=== PATIENT | female | born 1955 | race Caucasian/White ===

== ENCOUNTER 2022-09-25 15:18 | Emergency (ER) | payer OTHER, SELFPAY ==
[2022-09-25] VITALS (13 sets, daily range): BP systolic 107–142; BP diastolic 76–108; PULSE 105–118; RESP 26; TEMP 36.1; O2SAT 95–98; BMI 35.4
--- NOTE | 2022-09-25 16:10 | ED_ITS ---
HPI - Abdominal Pain General Chief Complaint: Abdominal Pain Stated Complaint: Midcenter, constant abdominal pain Time Seen by Provider: 09/25/22 15:45 History of Present Illness HPI narrative: This 66-year-old female comes in reporting upper epigastric pain that began a few hours ago and is radiating up into her chest. She attributes this to heartburn type symptoms and states that she did take some Gaviscon without any relief. She does not report any nausea, lightheadedness, shortness of breath, or diaphoresis. She does not have any exercise intolerance. This pain came on while not doing anything particularly strenuous. She did vomit once responding to the pain. Related Data Home Medications Medication Instructions Recorded Confirmed albuterol sulfate 90 mcg/actuation 2 inh inhalation Q4H PRN 09/25/22 09/25/22 aerosol inhaler atenolol 50 mg tablet 50 mg PO DAILY 09/25/22 09/25/22 atorvastatin 20 mg tablet 20 mg PO DAILY 09/25/22 09/25/22 clobetasol 0.05 % topical cream 1 applic topical DAILY 09/25/22 09/25/22 diltiazem HCl 180 mg mg PO Q12H 09/25/22 capsule,extended release 24 hr, controlled gabapentin 300 mg capsule 300 mg PO HS 09/25/22 09/25/22 warfarin 3 mg tablet 3 mg PO DAILY 09/25/22 09/25/22 Previous Rx's Medication Instructions Recorded pantoprazole 20 mg tablet,delayed 20 mg PO DAILY #20 tabs 09/25/22 release (Protonix) Allergies Allergy/AdvReac Type Severity Reaction Status Date / Time digoxin Allergy [place] Verified 09/25/22 15:39 [place] morphine Allergy respiratory Verified 09/25/22 15:39 distress Review of Systems Status of ROS Reports: 10 or more systems reviewed and unremarkable except as noted in History and below Narrative Constitutional: No fevers, no weight gain or loss. Eyes: No discharge. No vision changes. HENT: No congestion, no sore throat, no ear pain. Cardiovascular: No chest pain, no palpitations. Respiratory: No shortness of breath, no wheezes, no cough. Gastrointestinal: Upper epigastric abdominal pain radiating up into the chest. One episode of vomiting. No diarrhea. Genitourinary: No dysuria, no hematuria. Musculoskeletal: Normal range of motion. Skin: No rashes, no pruritis. Neurological: No dizziness, weakness, sensory change, speech change. Endo/Heme/Allergies: No bruising or bleeding. No polydipsia. Pysch: no suicidality, no anxiety, no insomnia. All other systems reviewed and are negative. [facility] Social History Smoking Status: Never smoker Do you use any of these nicotine containing products: None Second hand tobacco smoke exposure: No Non-prescribed substance use: denies use Exam Narrative: Exam Narrative: Constitutional: Well-developed, well-nourished, no acute distress. HEENT: Normocephalic, atraumatic. Neck: Normal range of motion. Nontender. Supple. Heart: Regular. No murmurs. Normal rate. Intact distal pulses. Lungs: Clear to auscultation. No chest discomfort. No wheezes, rhonchi, or rales. Abdomen: Normal bowel sounds. Upper epigastric abdominal pain radiating upward. No rebound tenderness. Genitalia: Deferred. Back: No midline tenderness. Normal range of motion. Extremities: Normal range of motion. No injury. Skin: Intact. No rash. Warm. No erythema or pallor. Neurologic: No altered sensation. No weakness. Alert and oriented. Psychiatric: No suicidality. No anxiety or depression. No insomnia. Nursing notes and vitals signs are reviewed. Const: Vital Signs, click to edit/add: Vital Signs - 24 hr 09/25/22 15:33 09/25/22 17:26 09/25/22 17:30 Temperature 96.9 F L Pulse Rate 118 H 107 H Pulse Rate [Femora l] 117 H Respiratory Rate 26 H Blood Pressure Blood Pressure [Ri ght Forearm] 129/79 Pulse Oximetry 98 97 95 Oxygen Delivery Me thod Room Air 09/25/22 17:31 09/25/22 18:01 09/25/22 18:02 Temperature Pulse Rate 110 H 108 H Pulse Rate [Femora l] Respiratory Rate Blood Pressure 130/87 142/108 H Blood Pressure [Ri ght Forearm] Pulse Oximetry 96 96 Oxygen Delivery Me thod 09/25/22 18:30 09/25/22 18:32 09/25/22 19:00 Temperature Pulse Rate 111 H 116 H Pulse Rate [Femora l] Respiratory Rate Blood Pressure 127/89 Blood Pressure [Ri ght Forearm] Pulse Oximetry 97 98 Oxygen Delivery Me thod 09/25/22 19:02 Temperature Pulse Rate 107 H Pulse Rate [Femora l] Respiratory Rate Blood Pressure 119/79 Blood Pressure [Ri ght Forearm] Pulse Oximetry 95 Oxygen Delivery Me thod Course Vital Signs Vital signs: Initial Vital Signs Temperature 96.9 F L 09/25/22 15:33 Temperature Source Temporal Artery Scan 09/25/22 15:33 Pulse Rate 117 H 09/25/22 15:33 Respiratory Rate 26 H 09/25/22 15:33 Blood Pressure 129/79 09/25/22 15:33 Blood Pressure Mean 95 09/25/22 15:33 Blood Pressure Position Sitting 09/25/22 15:33 Pulse Oximetry 98 09/25/22 15:33 Oxygen Delivery Method 09/25/22 15:33 Vital Signs Temperature 96.9 F L 09/25/22 15:33 Pulse Rate 117 H 09/25/22 15:33 Respiratory Rate 26 H 09/25/22 15:33 Blood Pressure 129/79 09/25/22 15:33 Pulse Oximetry 98 09/25/22 15:33 Oxygen Delivery Method 09/25/22 15:33 Temperature 96.9 F L 09/25/22 15:33 Pulse Rate 107 H 09/25/22 19:02 Respiratory Rate 26 H 09/25/22 15:33 Blood Pressure 119/79 09/25/22 19:02 Pulse Oximetry 95 09/25/22 19:02 Oxygen Delivery Method 09/25/22 15:33 MDM - Abdominal Pain MDM Narrative Medical decision making narrative: This 66-year-old female comes in with rather severe upper epigastric abdominal pain. She thought it might be related to her GI tract. She did receive a GI cocktail which did not provide much relief. An IV was established and she received Dilaudid 0.5 mg and Zofran 4 mg intravenously. This brought great relief to her symptoms. EKG shows atrial fibrillation without any specific ST or T-wave abnormality. Initial troponin also returns in normal range. The patient states that she had her gallbladder out and her symptoms felt somewhat like the abdominal pain she had when she had problems with her gallbladder. She also reports some concern over something happening with her health and reports family history of cancer. She did have pain that radiated through to her back but again with the medicine received intravenously this pain was completely resolved. Her lipase level returns in normal range. CT scan of the chest, abdomen, and pelvis show no specific findings that explain the patient's pain. There is some fluid around the area where her gallbladder was removed and a small liver cyst. This was very reassuring to the patient. A repeat troponin was acquired approximately 3 hours after the initial normal troponin and this returns also in normal range. At the time of discharge the patient appears safe for outpatient management. The treatment plan is reviewed along with written and verbal return precautions. Reasons to return and the importance of close followup were also reviewed. She received a prescription for Protonix and a few tablets of [place] are provided from [employer]. Lab Data Labs: Lab Results 09/25/22 09/25/22 09/25/22 Range/Units 16:30 16:30 16:30 WBC 10.69 (4.50-11.00) K/uL RBC 4.85 (4.00-5.20) m/uL Hgb 15.3 (12.0-16.0) gm/dL Hct 46.0 (33.0-51.0) % MCV 95 (80-100) fL MCH 32 (26-34) pg MCHC 33 (32-36) gm/dL RDW Coeff of [place] 12.3 (11.5-15.5) % Plt Count 231 (140-440) K/uL Neut % (Auto) 85.4 H (42.0-72.0) % Lymph % (Auto) 7.3 L (20-44) % [place] % (Auto) 5.7 (0.0-11.0) % Eos % (Auto) 1.3 (0.0-7.0) % Baso % (Auto) 0.1 (0.0-3.0) % Neut # (Auto) 9.10 H (1.7-7.0) K/uL Lymph # (Auto) 0.80 L (0.90-2.90) K/uL [place] # (Auto) 0.60 (0.00-0.90) K/UL Eos # (Auto) 0.14 (0.00-0.50) K/uL Baso # (Auto) 0.01 (0.00-0.30) K/uL Sodium 140 (135-149) mmol/L Potassium 4.2 (3.6-5.1) mmol/L Chloride 107 (96-114) mmol/L Carbon Dioxide 23 (20-32) mmol/L BUN 19 (7-30) mg/dL Creatinine 0.7 (0.5-1.5) mg/dL Estimated Creat Clear 45.16 Estimated GFR 95 ml/min Glucose 129 H (60-115) mg/dL Calcium 8.9 (8.4-10.6) mg/dL Lipase 233 (23-300) U/L POC Troponin I 0.01 (0.01-0.04) ng/ml Imaging Data CT Chest/Ab/Pelvis: Radiologist's impression: 1. Interval cholecystectomy. Bile ducts prominent, presumably due to reservoir effect. 2. Colonic diverticulosis but no evidence of diverticulitis. 3. Benign 4.5 x 2.2 cm cyst along the posterior margin of the gastric fundus, previously measuring 2.1 x 1.2 cm. 4. Mildly enlarged uterus. 5. Left renal parenchymal scarring, new since the prior study. 6. Liver cysts. 6. Negative chest CT. ECG Data Attestation: I personally reviewed and interpreted this ECG as follows: Interpretation: Atrial fibrillation. Rate 102 beats per minute. No specific ST or T-wave abnormality. Discharge Plan Discharge Clinical Impression: Abdominal pain Patient Disposition: Home, Self-Care Condition: Improved Additional Instructions: Take medication as needed and indicated. Follow up with MD or return if worsening. Prescriptions: New pantoprazole [Protonix] 20 mg tablet,delayed release (DR/EC) 20 mg PO DAILY Qty: 20 2RF No Action albuterol sulfate 90 mcg/actuation HFA aerosol inhaler 2 inh INHALATION Q4H PRN atenolol 50 mg tablet 50 mg PO DAILY atorvastatin 20 mg tablet 20 mg PO DAILY clobetasol 0.05 % cream 1 applic TOPICAL DAILY diltiazem HCl 180 mg capsule,ext.rel 24h degradable PO Q12H gabapentin 300 mg capsule 300 mg PO HS warfarin 3 mg tablet 3 mg PO DAILY Follow Up/Referrals: Dereje Marmolejo MD [Primary Care Provider] - Stand Alone Forms: [employer] Info Instructions
[2022-09-25] MEDS: GI COCKTAIL (VISC LIDO/ANTACID) 30 ML PO (16:35)
[2022-09-25 16:45] LABS: Basophils Absolute Auto 0.01 K/uL (0.00-0.30); Basophils Percent Auto 0.1 % (0.0-3.0); Eosinophils Absolute Auto 0.14 K/uL (0.00-0.50); Eosinophils Percent Auto 1.3 % (0.0-7.0); Hemoglobin* 15.3 gm/dL (12.0-16.0); Immature Granulocytes Abs Auto 0.02 K/uL (0.00-0.30); Immature Granulocytes Pct Auto 0.2 %; Lymphocytes Percent Auto 7.3 % (20-44); Mean Corpuscular HGB Conc 33 gm/dL (32-36); Mean Corpuscular Hemoglobin 32 pg (26-34); Mean Corpuscular Volume 95 fL (80-100); Monocytes Percent Auto 5.7 % (0.0-11.0); Neutrophils Percent Auto 85.4 % (42.0-72.0); Platelet Count* 231 K/uL (140-440); RDW Coefficient of Variation % 12.3 % (11.5-15.5); Red Blood Count 4.85 m/uL (4.00-5.20); White Blood Count* 10.69 K/uL (4.50-11.00)
[2022-09-25 16:48] LABS: Troponin, Point-of-Care* 0.01 ng/ml (0.01-0.04)
[2022-09-25] MEDS: ONDANSETRON 2 MG/ML inj 4 MG IVP (16:53)
[2022-09-25] MEDS: HYDROmorphone 0.5 mg/0.5 ml inj IVP (16:53)
[2022-09-25 16:55] LABS: Slide Review Reflex No
[2022-09-25 17:00] LABS: Chloride* 107 mmol/L (96-114); Potassium* 4.2 mmol/L (3.6-5.1); Sodium* 140 mmol/L (135-149)
[2022-09-25 17:02] LABS: Creatinine* 0.7 mg/dL (0.5-1.5); Est. Creatinine Clearance* 45.16; Estimated Glomerular Filt Rate 95 ml/min
[2022-09-25 17:03] LABS: Blood Urea Nitrogen* 19 mg/dL (7-30); Calcium* 8.9 mg/dL (8.4-10.6); Carbon Dioxide* 23 mmol/L (20-32); Glucose* 129 mg/dL (60-115)
--- NOTE | 2022-09-25 17:41 | CRLHL7_ITS ---
For Patients: As a result of the Century Cures Act, medical imaging exams and procedure reports are released immediately into your electronic medical record. You may view this report before your referring provider. If you have questions, please contact your health care provider. INDICATION: Epigastric pain. TECHNIQUE: Volumetric helical scanning of the chest was performed during infusion of 90 cc of Isovue 370 contrast material IV. Subsequently, scanning of the abdomen and pelvis was performed. Coronal and sagittal reconstructions were obtained. COMPARISON: Abdomen/pelvis CT of 03/20/2010. FINDINGS: CHEST: The lungs, airways and pleural spaces are clear. There is no mediastinal or hilar lymphadenopathy. The heart size is normal. ABDOMEN/PELVIS: The gallbladder has been removed in the interval. The bile ducts are prominent, presumably secondary to post-cholecystectomy reservoir affect. The multiple liver cysts are again demonstrated. The largest of these, located in the left lobe, measures up to 8.8 cm as opposed to 6.2 cm on the previous exam. The spleen, adrenal glands and pancreas are negative. Left renal parenchymal scarring is now demonstrated along with a 3 mm left renal collecting system stone. The right kidney is negative. There is no evidence of bowel obstruction or inflammation. Colonic diverticulosis is noted but there is no evidence of diverticulitis. A benign 4.5 x 2.2 cm cyst along the posterior margins gastric fundus is demonstrated and previously measured 2.1 x 1.2 cm. No lymphadenopathy is evident. No free fluid is demonstrated. The postmenopausal uterus is mildly enlarged but is smaller than on the previous examination. No ovarian abnormality is evident. IMPRESSION: 1. Interval cholecystectomy. Bile ducts prominent, presumably due to reservoir effect. 2. Colonic diverticulosis but no evidence of diverticulitis. 3. Benign 4.5 x 2.2 cm cyst along the posterior margin of the gastric fundus, previously measuring 2.1 x 1.2 cm. 4. Mildly enlarged uterus. 5. Left renal parenchymal scarring, new since the prior study. 6. Liver cysts. 6. Negative chest CT. Please note that all CT scans at this facility use dose modulation, iterative reconstruction, and/or weight-based dosing when appropriate to reduce radiation dose to as low as reasonably achievable. Dictated by Neal Sosa MD @ 09/25/2022 6:35:36 PM (Electronically Signed)
[2022-09-25 17:53] LABS: Lipase* 233 U/L (23-300)
== END 2022-09-25 19:57 | disposition home or self-care (01) ==
PROVIDERS: Emergency Provider Emergency Medicine Emergency Medical Services; PCP Surgery
DX: R10.13 Epigastric pain (principal)
CPT/HCPCS: 36415; 71260; 74177; 80048; 83690; 84484; 85025; 93005; 96374; 96375; 99285; A9270; J1170; J2405; Q9967

== ENCOUNTER 2022-10-26 08:01 | Outpatient (CLI) | payer OTHER, SELFPAY ==
--- NOTE | 2022-10-26 08:15 | CRLHL7_ITS ---
For Patients: As a result of the Century Cures Act, medical imaging exams and procedure reports are released immediately into your electronic medical record. You may view this report before your referring provider. If you have questions, please contact your health care provider. INDICATION: Intermittent chronic epigastric abdominal pain. Prior cholecystectomy. Reported upper endoscopy several years ago at [facility]. The patient states that nothing was found. TECHNIQUE : Single and double-contrast esophagram and upper GI. FINDINGS: No stricture, mass, or obstruction. No evidence for ulceration, esophagitis, hiatal hernia, or reflux. Intermittent delayed transit of barium through the esophagus. Specifically, on several occasions there was a standing column of barium which passed slowly into the stomach. Imaging of the stomach, duodenum, and proximal jejunum are all within normal limits. No gastric mass, gastric obstruction, and no evidence for gastric or duodenal ulceration. Surgical clips right upper quadrant from a prior cholecystectomy. 4 minutes 3 seconds fluoroscopy time utilized. These findings were discussed briefly with the patient. IMPRESSION: 1. Mild intermittent holdup of barium in the mid to distal esophagus with subsequent spontaneous complete passage of barium from the esophagus into the stomach. No hiatal hernia. No reflux could be elicited. 2. No evidence for esophagitis, gastric ulcer disease, or duodenal ulcers. Dictated by Shyam Romero MD @ 10/26/2022 9:08:47 AM (Electronically Signed)
== END 2022-10-26 08:02 | disposition home or self-care (01) ==
LOC: RAD 08:03
PROVIDERS: PCP Surgery; Visit Provider Surgery
DX: R10.13 Epigastric pain (principal)
CPT/HCPCS: 74246

== ENCOUNTER 2023-03-23 11:51 | Emergency (ER) | payer OTHER, SELFPAY ==
[2023-03-23] VITALS (7 sets, daily range): BP systolic 101–151; BP diastolic 73–98; PULSE 68–101; RESP 16–20; TEMP 35.6; O2SAT 92–98
--- NOTE | 2023-03-23 12:22 | ED_ITS ---
HPI - Abdominal Pain General Time Seen by Provider: 12: Date Seen: 03/23/23 Chief Complaint: Abdominal Pain Stated Complaint: L side pain one week Time Seen by Provider: 03/23/23 12:09 Source: patient and RN notes reviewed Mode of arrival: ambulatory Limitations: no limitations History of Present Illness HPI narrative: This 67-year-old female is coming in with about 2 weeks of symptoms. She initially felt like she had a cramp on her right side about 2 weeks ago. And then couple days after that everything seemed to shift over to pain in the left side. Movement seems to alter it more in make it worse. She has noted no fevers or chills, no nausea or vomiting, no change in appetite, no change in bowel habits such as constipation or diarrhea. Urination has been normal. She has had her gallbladder out before. She has never had a colonoscopy. She is a retired nurse and started to wonder if this could be something like pancreatitis. She tried to get into the clinic but could not secure an appointment. This morning when she woke up it is the worst it has been. She actually felt radiate up into her jaw. She denies any chest pain at this time. States she does have underlying atrial fibrillation and is anticoagulated with Coumadin. Had her INR about 2 weeks ago and was 2.5. Related Data Home Medications Medication Instructions Recorded Confirmed albuterol sulfate 90 mcg/actuation 2 inh inhalation Q4H PRN 09/25/22 09/25/22 aerosol inhaler atenolol 50 mg tablet 50 mg PO DAILY 09/25/22 09/25/22 atorvastatin 20 mg tablet 20 mg PO DAILY 09/25/22 09/25/22 clobetasol 0.05 % topical cream 1 applic topical DAILY 09/25/22 09/25/22 diltiazem HCl 180 mg mg PO Q12H 09/25/22 capsule,extended release 24 hr, controlled gabapentin 300 mg capsule 300 mg PO HS 09/25/22 09/25/22 warfarin 3 mg tablet 3 mg PO DAILY 09/25/22 09/25/22 Previous Rx's Medication Instructions Recorded pantoprazole 20 mg tablet,delayed 20 mg PO DAILY #20 tabs 09/25/22 release (Protonix) Allergies Allergy/AdvReac Type Severity Reaction Status Date / Time digoxin Allergy [place] Verified 06/23/23 15:33 [place] morphine Allergy respiratory Verified 03/23/23 15:33 distress Review of Systems Status of ROS Reports: 10 or more systems reviewed and unremarkable except as noted in History and below PFSH [facility] Social History Smoking Status: Never smoker Do you use any of these nicotine containing products: None Second hand tobacco smoke exposure: No How often do you have a drink containing alcohol: monthly or less How often do you have six or more drinks on one occasion: Never AUDIT-C Alcohol total score: 1 Non-prescribed substance use: denies use Exam Const: Vital Signs, click to edit/add: Vital Signs - 24 hr 03/23/23 12:10 03/23/23 12:35 03/23/23 15:23 Temperature 96.0 F L Pulse Rate [Pulse Oximeter] 68 87 101 H Respiratory Rate 16 18 20 Blood Pressure [Ri ght Upper Arm] 109/73 109/95 H 151/78 H Pulse Oximetry 96 95 97 Oxygen Delivery Me thod Room Air Room Air 03/23/23 17:11 03/23/23 17:50 Temperature Pulse Rate [Pulse Oximeter] 96 96 Respiratory Rate 20 20 Blood Pressure [Ri ght Upper Arm] 101/74 118/76 Pulse Oximetry 96 92 Oxygen Delivery Me thod Room Air Room Air Documenting provider has reviewed patient's vital signs: yes Common normals: no apparent distress, oriented x3, no limitations, healthy appearing, alert and well nourished General appearance: cooperative, comfortable, well kempt and well developed Nutritional appearance: obese HENMT: Common normals: normocephalic, head/scalp atraumatic, hearing grossly normal bilaterally and external nose normal Head and scalp: normocephalic and atraumatic Face and sinus: normal facial exam Nose: external nose normal Eye: Common normals: PERRL, EOMs intact bilaterally, conjunctivae normal and no scleral icterus Conjunctiva: conjunctiva(e) normal Pupil: PERRL Neck & C-Spine: Common normals: full ROM, no lymphadenopathy and supple Resp: Common normals: normal respiratory effort, no retractions, no use of accessory muscles and clear to auscultation bilaterally Effort & inspection: able to speak in complete sentences Auscultation: clear to auscultation bilaterally Cardio: Other: Initially heart rate sounded regular but then there was irregularity heard and it was irregularly irregular. She has a very soft about 1 out of 6 systolic murmur heard upper sternal border. Normal S1 and S2, no S3 or S4 heard. GI: Common normals: Normal to inspection, nondistended, normoactive bowel sounds present and soft to palpation Palpation: soft Other: Definite epigastric and left upper quadrant pain. It does not worsen when I palpate the abdominal wall and have her sit up. Body habitus precludes definitive examination for masses. Extremity: Common normals: normal to inspection and full ROM Neuro: Common normals: oriented x3 Sensorium/orientation: alert Psych: Appearance: well kempt Course Course Hospital Course: Patient and I reviewed differential is broad. I will have them get an EKG and troponin on her just to ensure no atypical presentations of cardiac disease. Symptoms have been present for 2 weeks in are worsening today. This certainly seems like it could be internal abdominal pathology. Stomach issues such as ulcer, gastritis, pancreatitis, bowel pathology outside of the stomach. Urinary system with kidney stones is consideration, will be getting urinalysis. I would consider other etiologies like possible aneurysms, dissections, D-dimer pending. Will also get an INR on her. Occult internal bleeding with her being anticoagulated is also a possibility. She understands will likely be proceeding with imaging but would like labs to help me define what imaging I might get and how we order it. Reevaluation(s) Time of Reevaluation #1: 14:38 Reevaluation #1: Have reviewed with patient that I have ordered a CT aortic protocol. Her D- dimer is quite elevated. Her INR is just slightly subtherapeutic. They wondered if this would look for clots. I reviewed with her male briquette machine operator helper that it is unlikely for her to actually have a clot given her INR and being on Coumadin. IV more concern for bleeding issues, ruling out things like dissection, still could have aneurysm. We are still waiting on chemistries but her CBC is reassuring. Time of Reevaluation #2: 17:13 Reevaluation #2: Have apologized to the patient for the delay. Unfortunately I was involved in patient care that I could not step away from for a while. She is requesting something for pain, will order 5 mg oxycodone which she states she can tolerate. Have reviewed the CT findings with her. She is on Coumadin, am going to recheck a hemoglobin on her. Symptoms have been going on for about 2 weeks, my guess is is that she might have some bleeding that is potentially happening intermittently given that she had increased pain today. I am going to wait for the hemoglobin result and then I will talk to our general surgeon regarding this case. She is not hemodynamically unstable, not actively hemorrhaging out at this time but will ensure stability with the hemoglobin. Time of Reevaluation #3: 18:32 Reevaluation #3: Have reviewed with patient the concern from the general surgeon that there might be active bleeding going on in the cyst. It is been recommended to have a CT GI bleed protocol. We are currently checking to see if this is something that we can do here at this time. If not, it will be recommended that she transfer to a tertiary facility. If we are able to do this CT here at this time, find active bleeding happening, she will also be recommended to go to a tertiary institution. Reviewed with her that she is on anticoagulation and that is going to need to be held. She stated that that puts her at risk for stroke and reviewed with her that indeed it does. We are getting to a risk benefit situation where the risk of bleeding in this liver cyst is outweighing benefit of anticoagulation at this time. This is something that she could potentially bleed out from. I am recommending vitamin K at this time to start reversal. She will have to see when she can potentially go back on Coumadin, do not have that answer for her at this time. Patient is wondering if this is something that can be done at a later date, have reviewed the implications of active internal bleeding with her which can be dire and life-threatening. She did wonder if this is something she could drive herself somewhere for further evaluation and at this time I cannot recommend that. I would recommend transfer her via ALS ambulance if we are considering transfer. If we can document no active internal bleeding within this cyst, she can discharge to home with outp atient follow-up. Additional Reevaluation(s): 7:51 p.m. have reviewed with patient there is no active bleeding in this lesion in her liver. She absolutely will need follow-up, is recommended by our general surgeon to actually see the hepatobiliary surgeon, will need to be referred through her clinic. She is getting her vitamin K right now. She will remain off Coumadin, will need to work with the specialists regarding the timing to restart this. Consultations Consultation #1: Was finally able to connect with the radiologist who read this. I was detained in patient care with another patient for quite some time. He did specifically review the CT findings. He believes this is likely a cyst that is turn complex with intracystic hemorrhage. He states it can happen but is rare. She has a prior CT showing this, the cyst has grown some. The prior cyst on the older CT did not show any changes that made it appear concerning for any hepatocellular carcinoma. He did recommend that she have a follow-up outpatient hepatic MRI protocol done. We cannot do MRI here at this time, he does not feel needs to happen emergently today. Time: 17:01 Consultation #2: Talked to the general surgeon regarding this case. She did call the radiologist to review the CT scans as she was concerned about possible acute extravasation of contrast in the lesion. They are recommending a GI bleed protocol CT. She is also recommending holding Coumadin and consideration of giving vitamin K. if patient has active bleeding in this cyst, she would recommend transfer to a tertiary institution where there is Interventional Radiology. Ultimately patient is going to need to see hepatobiliary surgery which can be done outpatient. Time: 18:15 Vital Signs Vital signs: Initial Vital Signs Temperature 96.0 F L 03/23/23 12:10 Temperature Source Temporal Artery Scan 03/23/23 12:10 Pulse Rate 68 03/23/23 12:10 Pulse Rhythm Regular 03/23/23 12:10 Respiratory Rate 16 03/23/23 12:10 Blood Pressure 109/73 03/23/23 12:10 Blood Pressure Mean 85 03/23/23 12:10 Pulse Oximetry 96 03/23/23 12:10 Oxygen Delivery Method Room Air 03/23/23 12:10 Vital Signs Temperature 96.0 F L 03/23/23 12:10 Pulse Rate 68 03/23/23 12:10 Respiratory Rate 16 03/23/23 12:10 Blood Pressure 109/73 03/23/23 12:10 Pulse Oximetry 96 03/23/23 12:10 Oxygen Delivery Method Room Air 03/23/23 12:10 Temperature 96.0 F L 03/23/23 12:10 Pulse Rate 96 03/23/23 17:50 Respiratory Rate 20 03/23/23 17:50 Blood Pressure 118/76 03/23/23 17:50 Pulse Oximetry 92 03/23/23 17:50 Oxygen Delivery Method Room Air 03/23/23 17:50 MDM - Abdominal Pain Lab Data Attestation: I reviewed the patient's lab results. Labs: Lab Results 03/23/23 03/23/23 03/23/23 Range/Units 12:33 12:38 13:23 WBC 7.54 (4.50-11.00) K/uL RBC 4.22 (4.00-5.20) m/uL Hgb 13.3 (12.0-16.0) gm/dL Hct 40.0 (33.0-51.0) % MCV 95 (80-100) fL MCH 32 (26-34) pg MCHC 33 (32-36) gm/dL RDW Coeff of Cornell 12.6 (11.5-15.5) % Plt Count 240 (140-440) K/uL Neut % (Auto) 75.7 H (42.0-72.0) % Lymph % (Auto) 13.0 L (20-44) % Swisher % (Auto) 8.9 (0.0-11.0) % Eos % (Auto) 2.0 (0.0-7.0) % Baso % (Auto) 0.1 (0.0-3.0) % Neut # (Auto) 5.70 (1.7-7.0) K/uL Lymph # (Auto) 1.00 (0.90-2.90) K/uL Swisher # (Auto) 0.70 (0.00-0.90) K/UL Eos # (Auto) 0.15 (0.00-0.50) K/uL Baso # (Auto) 0.01 (0.00-0.30) K/uL INR 1.84 H (0.91-1.10) D-Dimer Quant (PE/DVT) 3.86 H (0.00-0.50) ug/ml Sodium 137 (135-149) mmol/L Potassium 4.1 (3.6-5.1) mmol/L Chloride 104 (96-114) mmol/L Carbon Dioxide 25 (20-32) mmol/L BUN 18 (7-30) mg/dL Creatinine 0.7 (0.5-1.5) mg/dL Estimated GFR 94 ml/min Glucose 102 (60-115) mg/dL Lactate 1.4 (0.5-1.9) mmol/L Calcium 9.2 (8.4-10.6) mg/dL Magnesium 2.0 (1.5-2.6) mg/dL Total Bilirubin 0.6 (0.1-1.5) mg/dL AST 35 (12-35) U/L ALT 17 (4-35) U/L Alkaline Phosphatase 68 (40-150) U/L C-Reactive Protein 3.3 H (0.5-1.0) mg/dL Total Protein 7.6 (6.0-8.3) g/dL Albumin 4.4 (3.3-5.0) g/dL Lipase 174 (23-300) U/L Urine Color Yellow (Yellow) Urine Appearance Slightly Cloudy A (Clear) Urine pH 5.5 (5.0-8.5) Ur Specific [place] 1.025 (1.000-1.030) Urine Protein Negative (Negative) Urine Glucose (UA) Negative (Negative) Urine Ketones Negative (Negative) Urine Blood Trace-intact A (Negative) Urine Nitrite Negative (Negative) Urine Bilirubin Negative (Negative) Urine Urobilinogen 0.2 (0.2-1.0) Ur Leukocyte Esterase 1+ A (Negative) Urine RBC 0-2 (0-2) Urine WBC 5-10 A (0-5) Urine WBC Clumps Few A (None) Ur Squamous Epith Cells Moderate A (None-Few) Amorphous Sediment Few A (None) Urine Bacteria Many A (None) Lab Acknowledgement Test Added POC Troponin I (0.01-0.04) ng/ml 03/23/23 03/23/23 Range/Units 13:32 17:25 WBC (4.50-11.00) K/uL RBC (4.00-5.20) m/uL Hgb 13.0 (12.0-16.0) gm/dL Hct (33.0-51.0) % MCV (80-100) fL MCH (26-34) pg MCHC (32-36) gm/dL RDW Coeff of Cornell (11.5-15.5) % Plt Count (140-440) K/uL Neut % (Auto) (42.0-72.0) % Lymph % (Auto) (20-44) % Swisher % (Auto) (0.0-11.0) % Eos % (Auto) (0.0-7.0) % Baso % (Auto) (0.0-3.0) % Neut # (Auto) (1.7-7.0) K/uL Lymph # (Auto) (0.90-2.90) K/uL Swisher # (Auto) (0.00-0.90) K/UL Eos # (Auto) (0.00-0.50) K/uL Baso # (Auto) (0.00-0.30) K/uL INR (0.91-1.10) D-Dimer Quant (PE/DVT) (0.00-0.50) ug/ml Sodium (135-149) mmol/L Potassium (3.6-5.1) mmol/L Chloride (96-114) mmol/L Carbon Dioxide (20-32) mmol/L BUN (7-30) mg/dL Creatinine (0.5-1.5) mg/dL Estimated GFR ml/min Glucose (60-115) mg/dL Lactate (0.5-1.9) mmol/L Calcium (8.4-10.6) mg/dL Magnesium (1.5-2.6) mg/dL Total Bilirubin (0.1-1.5) mg/dL AST (12-35) U/L ALT (4-35) U/L Alkaline Phosphatase (40-150) U/L C-Reactive Protein (0.5-1.0) mg/dL Total Protein (6.0-8.3) g/dL Albumin (3.3-5.0) g/dL Lipase (23-300) U/L Urine Color (Yellow) Urine Appearance (Clear) Urine pH (5.0-8.5) Ur Specific [place] (1.000-1.030) Urine Protein (Negative) Urine Glucose (UA) (Negative) Urine Ketones (Negative) Urine Blood (Negative) Urine Nitrite (Negative) Urine Bilirubin (Negative) Urine Urobilinogen (0.2-1.0) Ur Leukocyte Esterase (Negative) Urine RBC (0-2) Urine WBC (0-5) Urine WBC Clumps (None) Ur Squamous Epith Cells (None-Few) Amorphous Sediment (None) Urine Bacteria (None) Lab Acknowledgement POC Troponin I 0.00 L (0.01-0.04) ng/ml Imaging Data CT Chest/Ab/Pelvis: Attestation: I have reviewed the pertinent imaging results. My impression: Can see cystic lesion with some increased internal echoes on the liver, will await Radiology over-read. Radiologist's impression: Patient: ANGEL MCMULLEN Facility:?[facility] Patient ID:?[id number] :?1955 Study:?CT Chest/Abd/Pelvis Angio Dissection Protocol 95cc I-03/23/2023 3:32:03 PM Ordering Physician:Manoj Campos Final Report: INDICATION: Chest pain. Abdominal pain. TECHNIQUE: CT chest without contrast and CT chest, abdomen and pelvis acquired with 100 cc Omnipaque 350 IV contrast, dissection protocol. COMPARISON: None. FINDINGS: CHEST: Cardiovascular structures: The unenhanced images demonstrate no evidence of aortic intramural thrombus. Thoracic aorta is normal in caliber without evidence of dissection. Heart size is normal. Mild coronary artery calcifications. Mediastinum and dia: No mass or adenopathy. Lungs and pleura: Mosaic attenuation. Scattered atelectasis. No focal consolidations, or pneumothoraces. No pleural effusions. Chest wall and axilla: No mass or adenopathy. Bones: Unremarkable for age. ABDOMEN AND PELVIS: Liver: Re- demonstration of large left hepatic cystic lesion, which has mildly increased in size and demonstrates subtle increased hyperdensity, currently m easuring up to 10.2 centimeters (previously measuring 8.9 centimeters). Few additional adjacent cystic lesions, unchanged. Gallbladder and bile ducts: Cholecystectomy. Similar mild left hepatic lobe biliary dilation. Pancreas: Unremarkable. Spleen: Unremarkable. Adrenal glands: Unremarkable. Kidneys: Left renal scarring. GI tract: Similar benign-appearing cystic lesion along the posterior margins of the gastric fundus. No bowel obstruction. Normal appendix. Vascular structures: Abdominal aorta is normal in caliber without evidence of dissection. Mesenteric arteries are patent. Lymph nodes: Unremarkable. Miscellaneous: Trace free fluid in the pelvis. No free air. Pelvic Organs: Unremarkable. Bones: Degenerative changes. IMPRESSION: Redemonstration of large 10.2 centimeter left hepatic cystic lesion which has mildly increased in size with interval development of increased hyperdensity. Constellation of findings could suggest simple hepatic cyst with interval intracystic hemorrhage. Recommend further evaluation with hepatic protocol MRI to exclude other indistinguishable cystic tumors. Otherwise, no acute intrathoracic or intra-abdominal/pelvic abnormality including aortic aneurysm or dissection is question. Case discussed with Beth Simpson at 2:30 p.m. on 03/23/2023. Please note that all CT scans at this facility use dose modulation, iterative reconstruction, and/or weight-based dosing when appropriate to reduce radiation dose to as low as reasonably achievable. Dictated by Wei Rivera MD @ 03/23/2023 4:25:50 PM (Electronic Signature) CT scan - abdomen: Attestation: I have reviewed the pertinent imaging results. Radiologist's impression: Patient: ANGEL MCMULLEN Facility:?[facility] Patient ID:?[id number] Site Patient ID:?[id number]. Site :?1955 Study:?CT Abdomen/Pelvis W/ and W/O Cont GI BLEED PROTOCOL-03/23/2023 7:15:34 PM Ordering Physician:Manoj Campos Final Report: INDICATION: Patient presented earlier today with a CT dissection study that showed a hyperdense hepatic cystic lesion which had increased in size since a remote study and contain abnormal increased density consistent with intracystic hemorrhage. COMPARISON: This study was performed approximately 7 p.m.. This is compared to the angiogram study performed at above 3:15 p.m. and the September 25, 2022 study. TECHNIQUE: CT examination of the abdomen and pelvis was performed before and after the uneventful intravenous administration of 95 cc of Isovue 370. Thin section axial images were obtained from the lung bases through the pubic symphysis. Oral contrast was not administered. The study was performed as a multi phase GI bleeding protocol study. The purposes to assess for active bleeding within the hepatic lesion. Please note that all CT scans at this facility use dose modulation, iterative reconstruction, and/or weight-based dosing when appropriate to reduce radiation dose to as low as reasonably achievable. FINDINGS: LUNG BASES: The lung bases as visualized appear normal. The heart size is top normal and the lung bases. LIVER/BILIARY SYSTEM:The liver is overall normal in size. There are several simple cysts identified. There has been a cholecystectomy. There is prominence the biliary ductal system especially the common hepatic duct and portions of the intrahepatic ductal system on the left. This is unchanged. There is a complex cystic lesion in the left lobe that is hyperdense, has a thickened wall and contains internal hyperdense material likely a blood clot. This measures about 9 centimeters in greatest dimension and is unchanged. There is no evidence of active bleeding within this lesion by this exam ADRENALS: Normal KIDNEYS, URETERS and BLADDER:Renal cortical scarring on the left. No obstructive uropathy SPLEEN:Normal appearance. PANCREAS: Appears normal. RETROPERITONEUM and MESENTERY: There is no mass, adenopathy or aortic aneurysm. GASTROINTESTINAL SYSTEM: There is no evidence of diverticulitis, colitis, mechanical obstruction, or appendicitis. The small bowel as visualized appears normal.There is a cystic lesion associated with the posterior wall of the gastric fundus which is unchanged since the most remote study measuring about 3.9 centimeters. This of doubtful clinical significance. There is scattered diverticulosis PELVIS: No mass, adenopathy or free fluid. OSSEOUS STRUCTURES and ABDOMINAL WALL: There is an age-appropriate appearance of the osseous structures.No significant abdominal wall defect. OTHER: No free fluid or free air. IMPRESSION: 1. Re-demonstration of a complex cystic mass in the left lobe of the liver measuring about 9 centimeters unchanged. This is hyperdense, has a somewhat thickened and inflamed wall and contains hyperdense material in a dependent location. This probably represents intracystic hemorrhage. There has been no change and there is no acute hemorrhage identified. An MRI with gadolinium should be considered as there are malignancies that can create this appearance 2. Other nonacute appearing findings as discussed above, unchanged since the sharona or exam Please note that all CT scans at this facility use dose modulation, iterative reconstruction, and/or weight-based dosing when appropriate to reduce radiation dose to as low as reasonably achievable. Dictated by Clive Silva MD @ 03/23/2023 7:41:03 PM (Electronic Signature) ECG Data Attestation: I personally reviewed and interpreted this ECG as follows: (Atrial fibrillation, 94 beats per minute. Right bundle branch block.) ECG interpretation date: 06/23/23 ECG interpretation time: 13:33 Prior ECG tracings: not available for review Critical Care Time Critical Care Time Critical Care Time: No Discharge Plan Discharge Clinical Impression: Hepatic cyst, Abdominal pain Patient Disposition: Home, Self-Care Condition: Stable Additional Instructions: INR today was 1.8 for but we do not want you to take further Coumadin with the probable bleeding that has happened within this hepatic cyst. You need to follow up in clinic this next week, get referred specifically to a hepatobiliary surgeon. In the meantime, if you have increased abdominal pain, active symptoms of bleeding with lightheadedness weakness suddenly, do need to seek re- evaluation. If you did start actively bleeding in this liver cyst again or the abdomen, would anticipate that you would have increase in pain. No activities where you may get hit in the abdomen or injure yourself. I would minimize lifting at this time to less than 10 lb, no significant strenuous activity until cleared by surgery. Activity Level: No strenuous activity Prescriptions: No Action albuterol sulfate 90 mcg/actuation HFA aerosol inhaler 2 inh INHALATION Q4H PRN atenolol 50 mg tablet 50 mg PO DAILY atorvastatin 20 mg tablet 20 mg PO DAILY clobetasol 0.05 % cream 1 applic TOPICAL DAILY diltiazem HCl 180 mg capsule,ext.rel 24h degradable PO Q12H gabapentin 300 mg capsule 300 mg PO HS warfarin 3 mg tablet 3 mg PO DAILY pantoprazole [Protonix] 20 mg tablet,delayed release (DR/EC) 20 mg PO DAILY Qty: 20 2RF Follow Up/Referrals: Dereje Marmolejo MD [Primary Care Provider] - Stand Alone Forms: [employer] Info Instructions
[2023-03-23 13:00] LABS: Appearance Urine Slightly Cloudy (Clear); Bilirubin Urine Negative (Negative); Blood Urine Trace-intact (Negative); Color Urine Yellow (Yellow); Glucose Urine Negative (Negative); Ketones Urine Negative (Negative); Leukocyte Esterase Urine 1+ (Negative); Nitrite Urine Negative (Negative); Protein Urine Negative (Negative); Specific Gravity Urine 1.025 (1.000-1.030); Urobilinogen Urine 0.2 (0.2-1.0); pH Urine 5.5 (5.0-8.5)
[2023-03-23 13:17] LABS: RBC Urine 0-2 (0-2)
[2023-03-23 13:18] LABS: Amorphous Sediment Urine Few; Bacteria Urine Many; Squamous Epithelial Cell Urine Moderate (None-Few); WBC Clumps Urine Few
[2023-03-23 13:34] LABS: Lactate* 1.4 mmol/L (0.5-1.9)
[2023-03-23 13:35] LABS: Basophils Absolute Auto 0.01 K/uL (0.00-0.30); Basophils Percent Auto 0.1 % (0.0-3.0); Eosinophils Absolute Auto 0.15 K/uL (0.00-0.50); Hemoglobin* 13.3 gm/dL (12.0-16.0); Immature Granulocytes Abs Auto 0.02 K/uL (0.00-0.30); Immature Granulocytes Pct Auto 0.3 %; Mean Corpuscular HGB Conc 33 gm/dL (32-36); Mean Corpuscular Hemoglobin 32 pg (26-34); Mean Corpuscular Volume 95 fL (80-100); Monocytes Percent Auto 8.9 % (0.0-11.0); Neutrophils Percent Auto 75.7 % (42.0-72.0); Platelet Count* 240 K/uL (140-440); RDW Coefficient of Variation % 12.6 % (11.5-15.5); Red Blood Count 4.22 m/uL (4.00-5.20); White Blood Count* 7.54 K/uL (4.50-11.00)
--- NOTE | 2023-03-23 13:58 | ED.NURSE ---
Pt notes she did not have pain upon arrival to the ED, is now stating she has pain in the center of her chest of about a 3.
[2023-03-23 14:19] LABS: INR 1.84 (0.91-1.10); Prothrombin Time 22.2 Seconds
[2023-03-23 14:23] LABS: D Dimer Quantitative* 3.86 ug/ml (0.00-0.50)
[2023-03-23 14:25] LABS: Albumin* 4.4 g/dL (3.3-5.0); Chloride* 104 mmol/L (96-114); Slide Review Reflex No; Sodium* 137 mmol/L (135-149)
[2023-03-23 14:26] LABS: Potassium* 4.1 mmol/L (3.6-5.1)
[2023-03-23 14:28] LABS: Creatinine* 0.7 mg/dL (0.5-1.5); Estimated Glomerular Filt Rate 94 ml/min
[2023-03-23 14:29] LABS: Alanine Aminotransferase* 17 U/L (4-35); Alkaline Phosphatase* 68 U/L (40-150); Aspartate Amino Transferase* 35 U/L (12-35); Bilirubin Total* 0.6 mg/dL (0.1-1.5); Blood Urea Nitrogen* 18 mg/dL (7-30); Calcium* 9.2 mg/dL (8.4-10.6); Carbon Dioxide* 25 mmol/L (20-32); Glucose* 102 mg/dL (60-115); Lipase* 174 U/L (23-300); Total Protein* 7.6 g/dL (6.0-8.3)
[2023-03-23 14:31] LABS: C Reactive Protein* 3.3 mg/dL (0.5-1.0)
--- NOTE | 2023-03-23 14:34 | CRLHL7_ITS ---
For Patients: As a result of the 21st Century Cures Act, medical imaging exams and procedure reports are released immediately into your electronic medical record. You may view this report before your referring provider. If you have questions, please contact your health care provider. INDICATION: Chest pain. Abdominal pain. TECHNIQUE: CT chest without contrast and CT chest, abdomen and pelvis acquired with 100 cc Omnipaque 350 IV contrast, dissection protocol. COMPARISON: None. FINDINGS: CHEST: Cardiovascular structures: The unenhanced images demonstrate no evidence of aortic intramural thrombus. Thoracic aorta is normal in caliber without evidence of dissection. Heart size is normal. Mild coronary artery calcifications. Mediastinum and dia: No mass or adenopathy. Lungs and pleura: Mosaic attenuation. Scattered atelectasis. No focal consolidations, or pneumothoraces. No pleural effusions. Chest wall and axilla: No mass or adenopathy. Bones: Unremarkable for age. ABDOMEN AND PELVIS: Liver: Re- demonstration of large left hepatic cystic lesion, which has mildly increased in size and demonstrates subtle increased hyperdensity, currently measuring up to 10.2 centimeters (previously measuring 8.9 centimeters). Few additional adjacent cystic lesions, unchanged. Gallbladder and bile ducts: Cholecystectomy. Similar mild left hepatic lobe biliary dilation. Pancreas: Unremarkable. Spleen: Unremarkable. Adrenal glands: Unremarkable. Kidneys: Left renal scarring. GI tract: Similar benign-appearing cystic lesion along the posterior margins of the gastric fundus. No bowel obstruction. Normal appendix. Vascular structures: Abdominal aorta is normal in caliber without evidence of dissection. Mesenteric arteries are patent. Lymph nodes: Unremarkable. Miscellaneous: Trace free fluid in the pelvis. No free air. Pelvic Organs: Unremarkable. Bones: Degenerative changes. IMPRESSION: Redemonstration of large 10.2 centimeter left hepatic cystic lesion which has mildly increased in size with interval development of increased hyperdensity. Constellation of findings could suggest simple hepatic cyst with interval intracystic hemorrhage. Recommend further evaluation with hepatic protocol MRI to exclude other indistinguishable cystic tumors. Otherwise, no acute intrathoracic or intra-abdominal/pelvic abnormality including aortic aneurysm or dissection is question. Case discussed with Beth Simpson at 2:30 p.m. on 03/23/2023. Please note that all CT scans at this facility use dose modulation, iterative reconstruction, and/or weight-based dosing when appropriate to reduce radiation dose to as low as reasonably achievable. Dictated by Wei Rivera MD @ 03/23/2023 4:25:50 PM (Electronically Signed)
[2023-03-23] MEDS: OXYCODONE 5 MG TABLET PO (17:19)
--- NOTE | 2023-03-23 18:40 | CRLHL7_ITS ---
For Patients: As a result of the Century Cures Act, medical imaging exams and procedure reports are released immediately into your electronic medical record. You may view this report before your referring provider. If you have questions, please contact your health care provider. INDICATION: Patient presented earlier today with a CT dissection study that showed a hyperdense hepatic cystic lesion which had increased in size since a remote study and contain abnormal increased density consistent with intracystic hemorrhage. COMPARISON: This study was performed approximately 7 p.m.. This is compared to the angiogram study performed at above 3:15 p.m. and the September 25, 2022 study. TECHNIQUE: CT examination of the abdomen and pelvis was performed before and after the uneventful intravenous administration of 95 cc of Isovue 370. Thin section axial images were obtained from the lung bases through the pubic symphysis. Oral contrast was not administered. The study was performed as a multi phase GI bleeding protocol study. The purposes to assess for active bleeding within the hepatic lesion. Please note that all CT scans at this facility use dose modulation, iterative reconstruction, and/or weight-based dosing when appropriate to reduce radiation dose to as low as reasonably achievable. FINDINGS: LUNG BASES: The lung bases as visualized appear normal. The heart size is top normal and the lung bases. LIVER/BILIARY SYSTEM:The liver is overall normal in size. There are several simple cysts identified. There has been a cholecystectomy. There is prominence the biliary ductal system especially the common hepatic duct and portions of the intrahepatic ductal system on the left. This is unchanged. There is a complex cystic lesion in the left lobe that is hyperdense, has a thickened wall and contains internal hyperdense material likely a blood clot. This measures about 9 centimeters in greatest dimension and is unchanged. There is no evidence of active bleeding within this lesion by this exam ADRENALS: Normal KIDNEYS, URETERS and BLADDER:Renal cortical scarring on the left. No obstructive uropathy SPLEEN:Normal appearance. PANCREAS: Appears normal. RETROPERITONEUM and MESENTERY: There is no mass, adenopathy or aortic aneurysm. GASTROINTESTINAL SYSTEM: There is no evidence of diverticulitis, colitis, mechanical obstruction, or appendicitis. The small bowel as visualized appears normal.There is a cystic lesion associated with the posterior wall of the gastric fundus which is unchanged since the most remote study measuring about 3.9 centimeters. This of doubtful clinical significance. There is scattered diverticulosis PELVIS: No mass, adenopathy or free fluid. OSSEOUS STRUCTURES and ABDOMINAL WALL: There is an age-appropriate appearance of the osseous structures.No significant abdominal wall defect. OTHER: No free fluid or free air. IMPRESSION: 1. Re-demonstration of a complex cystic mass in the left lobe of the liver measuring about 9 centimeters unchanged. This is hyperdense, has a somewhat thickened and inflamed wall and contains hyperdense material in a dependent location. This probably represents intracystic hemorrhage. There has been no change and there is no acute hemorrhage identified. An MRI with gadolinium should be considered as there are malignancies that can create this appearance 2. Other nonacute appearing findings as discussed above, unchanged since the prior exam Please note that all CT scans at this facility use dose modulation, iterative reconstruction, and/or weight-based dosing when appropriate to reduce radiation dose to as low as reasonably achievable. Dictated by Clive Silva MD @ 03/23/2023 7:41:03 PM (Electronically Signed)
[2023-03-23] MEDS: 0.9 % SODIUM CHLORIDE 500 ML 500 ML IV (19:11)
--- NOTE | 2023-03-23 19:22 | ED.NURSE ---
Report received from JOE Mujica.
[2023-03-23] MEDS: PHYTONADIONE (VIT K1) 5 MG in 0.9 % SODIUM CHLORIDE 50 ml 50 ML 100 MG IVPB (19:28)
== END 2023-03-23 20:35 | disposition home or self-care (01) ==
PROVIDERS: Emergency Provider Family Medicine; PCP Surgery
DX: Q44.6 Cystic disease of liver (principal); R10.9 Unspecified abdominal pain
CPT/HCPCS: 36415; 71270; 74174; 74177; 74178; 80053; 81001; 83605; 83690; 83735; 84484; 85018; 85025; 85379; 85610; 86140; 87086; 93005; 94761; 99285; A9270; J3430; J7120; Q9967

== ENCOUNTER 2025-07-14 20:55 | Outpatient (CLI) | payer MEDICARE, SELFPAY | END 2025-07-14 20:56 | disposition home or self-care (01) | LOC: SLEEP 20:55 | PROVIDERS: PCP Surgery; Visit Provider Internal Medicine | DX: G47.33 Obstructive sleep apnea (adult) (pediatric) (principal) | CPT/HCPCS: 95811 ==